=== PATIENT | female | born 1940 | race Two or more races ===

== ENCOUNTER 2021-01-28 22:48 | Inpatient (IN) | payer MEDICARE, BC ==
[~2021-01-28] VITALS: Ht 160 cm; Wt 54.0 kg
[2021-01-28] MEDS ORDERED: IV NS 0.9% 1,000 ML IV ONE (23:00)
--- NOTE | 2021-01-28 23:01 | NUR ---
PT AAOX4. C/O BODY IS BURNING AFTER TAKING ANTIBIOTICS FOR HER H. PYLORI. PT PLACED IN BED 9 ON MONITOR AND PULSE OX. AWAITING ER MD FOR EVAL AND ORDERS.
--- NOTE | 2021-01-28 23:06 | NUR ---
LINE ESTABLISHED RH 20G.
[2021-01-28] MEDS ORDERED: HYDROCODONE/APAP 10/325MG TABLET ONE (23:23)
[2021-01-28] MEDS ORDERED: HYDROCODONE/APAP 5/325MG TABLET ONE (23:25)
[2021-01-28 23:26] LABS: BASOPHILS # (AUTO) 0.1 /CMM (0.0-0.2); BASOPHILS % (AUTO) 1.3 % (0.0-2.0); EOSINOPHILS % (AUTO) 0.8 % (0.0-6.0); HEMATOCRIT 39 % (33-45); LYMPHOCYTES # (AUTO) 1.3 /CMM (0.8-4.8); LYMPHOCYTES % (AUTO) 20.7 % (20.0-44.0); MEAN CORPUSCULAR HGB CONC 33 g/dl (31.0-36.0); MEAN CORPUSCULAR VOLUME 92 fL (82-100); MONOCYTES # (AUTO) 0.5 /CMM (0.1-1.30); MONOCYTES % (AUTO) 7.1 % (2.0-12.0); NEUTROPHILS # (AUTO) 4.5 /CMM (1.8-8.9); NEUTROPHILS % (AUTO) 70.1 % (43.0-81.0); PLATELET COUNT (AUTO) 300 /CMM (150-450); RED BLOOD CELL COUNT(AUTO) 4.24 MIL/uL (4.0-5.2); WHITE BLOOD COUNT (AUTO) 6.4 K/uL (4.3-11.0)
[2021-01-28] MEDS ORDERED: HYDROCODONE/APAP 5/325MG TABLET PO ONE (23:30)
[2021-01-28 23:35] LABS: CALCIUM, SERUM 9.3 mg/dL (8.5-10.1); CREATININE 0.7 mg/dL (0.6-1.3); POTASSIUM 4.4 mmol/L (3.5-5.1)
--- NOTE | 2021-01-29 00:02 | NUR ---
CALLED FOR COVID SWAB
--- NOTE | 2021-01-29 00:21 | NUR ---
PT AWARE OF PLAN OF CARE
--- NOTE | 2021-01-29 00:30 | NUR ---
DR. THAKKAR PAGED PER ER ORDER.
--- NOTE | 2021-01-29 00:46 | NUR ---
GOLDIE BOOTH TALKING TO DR. THAKKAR REGARDING PT ADMISSION.
[2021-01-29] MEDS ORDERED: ONDANSETRON HCL/PF 4 MG/2 ML VIAL IVP PRN (01:00)
[2021-01-29] MEDS ORDERED: Z GUARD REMEDY 2 OZ OINT TP PRN (01:00)
[2021-01-29] MEDS ORDERED: MAGNESIUM HYDROXIDE 30 ML UDC PO PRN (01:00)
[2021-01-29] MEDS ORDERED: ZOLPIDEM TARTRATE 5 MG TABLET PO PRN (01:00)
--- NOTE | 2021-01-29 01:09 | NUR ---
REPORT GIVEN TO ALEX AGUILAR FOR YOVANA
[2021-01-29 02:05] VITALS: BP 145/95
--- NOTE | 2021-01-29 02:13 | NUR ---
PT TRANSFERED PER ACLS PROTOCOL
[2021-01-29 03:12] VITALS: BP 145/95
--- NOTE | 2021-01-29 03:19 | NUR ---
RN NOTES PT ARRIVED TO UNIT VIA [facility] PT WAS ABLE TO WALK TO BED FROM [facility] PT HAS STEADY GAIT. PT IS ALERT AND ORIENTED X 4 NO SIGN OF PAIN OR DISCOMFORT VISIBLE OR REPORTED AT THIS TIME. PT HAS IV ACCESS ON THE RIGHT HAND 20G FLUSHING INTACT NO SIGNS OF REDNESS OR SWELLING AT IV SITE. PT SKIN IS INTACT NO REDNESS OR BRUISING NOTED. PT ABDOMEN IS SOFT AND NONTENDER BOWEL SOUNDS PRESENT IN ALL FOUR QUADRANTS UPON AUSCULTATION LUNG SOUNDS CLEAR BILATERALLY. PT ORIENTED TO UNIT. AND ROOM CALL LIGHT WITHIN REACH. WILL CONTINUE TO MONITOR.
[2021-01-29 04:00] VITALS: BP 135/77
[2021-01-29] MEDS: HYDROCODONE/APAP 5/325MG TABLET PO PRN (04:24)
[2021-01-29 06:35] LABS: BASOPHILS # (AUTO) 0.1 /CMM (0.0-0.2); BASOPHILS % (AUTO) 1.1 % (0.0-2.0); EOSINOPHILS % (AUTO) 1.2 % (0.0-6.0); HEMATOCRIT 38 % (33-45); HEMOGLOBIN 12.6 g/dL (11.5-14.8); LYMPHOCYTES # (AUTO) 1.4 /CMM (0.8-4.8); LYMPHOCYTES % (AUTO) 23.7 % (20.0-44.0); MEAN CORPUSCULAR HGB CONC 33 g/dl (31.0-36.0); MEAN CORPUSCULAR VOLUME 93 fL (82-100); MONOCYTES # (AUTO) 0.5 /CMM (0.1-1.30); MONOCYTES % (AUTO) 9.3 % (2.0-12.0); NEUTROPHILS # (AUTO) 3.8 /CMM (1.8-8.9); NEUTROPHILS % (AUTO) 64.7 % (43.0-81.0); PLATELET COUNT (AUTO) 297 /CMM (150-450); RED BLOOD CELL COUNT(AUTO) 4.08 MIL/uL (4.0-5.2); WHITE BLOOD COUNT (AUTO) 5.8 K/uL (4.3-11.0)
--- NOTE | 2021-01-29 06:49 | NUR ---
RN NOTES PT [facility] PT WAS ABLE TO WALK TO BED FROM [facility] PT HAS STEADY GAIT. PT IS ALERT AND ORIENTED X 4 NO SIGN OF PAIN OR DISCOMFORT VISIBLE OR REPORTED AT THIS TIME. PT HAS IV ACCESS ON THE RIGHT HAND 20G FLUSHING INTACT NO SIGNS OF REDNESS OR SWELLING AT IV SITE. CALL LIGHT WITHIN REACH. WILL ENDORSE CARE TO DAY SHIFT NURSE.
[2021-01-29 07:03] LABS: CALCIUM, SERUM 8.8 mg/dL (8.5-10.1); CREATININE 0.6 mg/dL (0.6-1.3); PHOSPHORUS 4.2 mg/dL (2.5-4.9); POTASSIUM 4.2 mmol/L (3.5-5.1)
[2021-01-29] MEDS ORDERED: LACT1CAP71 PO (07:51)
[2021-01-29] MEDS ORDERED: TRIA0.2585 PO (07:51)
[2021-01-29] MEDS ORDERED: METO25TA4 PO (07:51)
[2021-01-29] MEDS ORDERED: ASPI-1169 PO (07:51)
[2021-01-29] MEDS ORDERED: FAMO20TA8 PO (07:51)
--- NOTE | 2021-01-29 07:52 | NUR ---
MS RN OPENING NOTE PATIENT IS IN ROOM RESTING, PATIENT IS IN NO ACUTE DISTRESS. PATIENT IS ON ROOM AIR TOLERATING WELL. NO SOB NOTED. PATIENT IS ON TELE MONITOR READING SR 90S. SAFETY PRECAUTIONS ARE ON, BED IS LOCKED AND IN THE LOWEST POSITION, SIDE RAILS ARE UP, CALL LIGHT WITHIN REACH. WILL CONTINUE TO MONITOR CLOSELY THROUGHOUT THE SHIFT.
[2021-01-29 07:59] VITALS: BP 141/76
[2021-01-29] MEDS ORDERED: ASPIRIN 81 MG TAB.CHEW PO SCH (09:00)
[2021-01-29] MEDS: METOPROLOL SUCCINATE 25 MG TAB.SR.24H PO SCH (09:15)
[2021-01-29] MEDS: ACIDOPHILUS/BULGARICUS 1 EACH TAB.CHEW PO SCH ×3 (09:15→16:41)
[2021-01-29] MEDS: ASPIRIN 81 MG TAB.CHEW PO SCH (09:16)
[2021-01-29] MEDS: ENOXAPARIN SODIUM 40 MG/0.4 ML DISP.SYRIN SQ SCH (13:18)
[2021-01-29 13:29] LABS: THYROID STIMULATING HORMONE 2.211 uIU/mL (0.358-3.74)
[2021-01-29 16:05] VITALS: BP 124/75
--- NOTE | 2021-01-29 19:33 | NUR ---
MS RN CLOSING NOTE PATIENT IS IN ROOM RESTING, PATIENT IS IN NO ACUTE DISTRESS. PATIENT IS ON ROOM AIR. TOLERATING WELL. NO SOB NOTED. SAFETY PRECAUTIONS ARE ON, BED IS LOCKED AND IN THE LOWEST POSITION, SIDE RAILS ARE UP, CALL LIGHT WITHIN REACH. ENDORSE PATIENT TO CHECK WRITING MACHINE OPERATOR NURSE FOR YOVANA.
--- NOTE | 2021-01-29 19:46 | NUR ---
RN NOTES PATIENT IS IN ROOM RESTING, PATIENT IS IN NO ACUTE DISTRESS. PATIENT IS ON ROOM AIR TOLERATING WELL. NO SOB NOTED. PATIENT IS ON TELE MONITOR READING SR 90S. SAFETY PRECAUTIONS ARE ON, BED IS LOCKED AND IN THE LOWEST POSITION, SIDE RAILS ARE UP, CALL LIGHT WITHIN REACH. WILL CONTINUE TO MONITOR CLOSELY .
[2021-01-29 20:00] VITALS: BP 145/77
[2021-01-29] MEDS: EZETIMIBE 10 MG TABLET PO SCH (21:40)
[2021-01-29] MEDS ORDERED: TRIAZOLAM 0.125 MG TABLET PO SCH (22:00)
[2021-01-30] MEDS: HYDROCODONE/APAP 5/325MG TABLET PO PRN (00:19)
--- NOTE | 2021-01-30 06:40 | NUR ---
RN NOTES PATIENT IS IN ROOM RESTING, PATIENT IS IN NO ACUTE DISTRESS. PATIENT IS ON ROOM AIR TOLERATING WELL. NO SOB NOTED. PATIENT IS ON TELE MONITOR READING SR 90S. SAFETY PRECAUTIONS ARE ON, BED IS LOCKED AND IN THE LOWEST POSITION, SIDE RAILS ARE UP, CALL LIGHT WITHIN REACH. WILL ENDORSE CARE TO DAY SHIFT NURSE. ALL NURSING NEEDS MET. ALL DUE MEDS GIVEN AND TOLERATED WELL.
--- NOTE | 2021-01-30 07:55 | NUR ---
MS RN OPENING NOTE RECEIVED PATIENT LYING IN BED, AWAKE. PATIENT STATES SHE NEEDS TO SEE THE DOCTOR AKILA. PATIENT ON ROOM AIR - TOLERATING WELL. NO CURRENT PAIN OR DISTRESS NOTED. SAFETY PRECAUTIONS IN PLACE, BED LOCKED AND IN THE LOWEST POSITION, SIDE RAILS X2, CALL LIGHT WITHIN REACH. WILL CONTINUE TO MONITOR.
[2021-01-30 08:00] VITALS: BP 128/74
[2021-01-30 08:03] LABS: BASOPHILS # (AUTO) 0.1 /CMM (0.0-0.2); BASOPHILS % (AUTO) 1.5 % (0.0-2.0); EOSINOPHILS % (AUTO) 1.3 % (0.0-6.0); HEMATOCRIT 38 % (33-45); HEMOGLOBIN 12.6 g/dL (11.5-14.8); LYMPHOCYTES # (AUTO) 1.7 /CMM (0.8-4.8); LYMPHOCYTES % (AUTO) 26.6 % (20.0-44.0); MEAN CORPUSCULAR HGB CONC 33 g/dl (31.0-36.0); MEAN CORPUSCULAR VOLUME 93 fL (82-100); MONOCYTES # (AUTO) 0.7 /CMM (0.1-1.30); MONOCYTES % (AUTO) 10.6 % (2.0-12.0); NEUTROPHILS # (AUTO) 3.8 /CMM (1.8-8.9); PLATELET COUNT (AUTO) 315 /CMM (150-450); RED BLOOD CELL COUNT(AUTO) 4.06 MIL/uL (4.0-5.2); WHITE BLOOD COUNT (AUTO) 6.4 K/uL (4.3-11.0)
[2021-01-30 08:05] LABS: CALCIUM, SERUM 8.8 mg/dL (8.5-10.1); CARBON DIOXIDE 25 mmol/L (21-32); CHLORIDE 97 mmol/L (98-107); CREATININE 0.7 mg/dL (0.6-1.3); GLUCOSE 83 mg/dL (74-106); POTASSIUM 3.6 mmol/L (3.5-5.1); SODIUM SERUM 132 mmol/L (136-145); UREA NITROGEN, BLOOD 13 mg/dL (7-18)
[2021-01-30] MEDS: ACIDOPHILUS/BULGARICUS 1 EACH TAB.CHEW PO SCH ×3 (08:26→16:56)
[2021-01-30] MEDS: PANTOPRAZOLE 40 MG TABLET.DR PO SCH (08:27)
[2021-01-30] MEDS: ASPIRIN 81 MG TAB.CHEW PO SCH (08:27)
[2021-01-30] MEDS: METOPROLOL SUCCINATE 25 MG TAB.SR.24H PO SCH (08:27)
[2021-01-30] MEDS: ENOXAPARIN SODIUM 40 MG/0.4 ML DISP.SYRIN SQ SCH (08:28)
[2021-01-30] MEDS ORDERED: CT SWABBABLE VALVE TRANS SET 1 EA INFUS.SET MC ONE (14:29)
[2021-01-30] MEDS ORDERED: IOHEXOL-300 100 ML VIAL IV ONE (14:29)
[2021-01-30] MEDS ORDERED: IV NS 0.9% 250 ML IV ONE (14:29)
[2021-01-30] MEDS ORDERED: TRAMADOL HCL 50 MG TABLET PO PRN (16:30)
--- NOTE | 2021-01-30 17:00 | NUR ---
MS RN NOTE PATIENT'S WATER MAINTENANCE SUPERVISOR IS ERICK. PATIENT WOULD LIKE HER TO BE FILLED IN WITH EVERY UPDATE. PHONE NUMBER: [phone]
--- NOTE | 2021-01-30 18:27 | NUR ---
MS RN CLOSING NOTE PATIENT IS LYING IN BED, RESTING. A/O X4. BREATHING IS EVEN AN UNLABORED. ON ROOM AIR - TOLERATING WELL. PATIENT IS ON ROOM AIR. NO PAIN OR RESPIRATORY DISTRESS NOTED. NO SOB NOTED. PATIENT IS AMBULATORY. PATIENT DUE TO HAVE MRI TONIGHT. SAFETY PRECAUTIONS IN PLACE. BED IS LOCKED AND IN LOWEST POSITION, SIDE RAILS X2. CALL LIGHT WITHIN REACH. WILL ENDORSE TO RN PALLIATIVE CARE NURSE FOR YOVANA.
[2021-01-30 19:00] VITALS: BP 126/74
--- NOTE | 2021-01-30 19:13 | NUR ---
RN NOTE PT ALERT AND ORIENTED X 4 IN BED WITH HEAD OF BED ELEVATED. ON ROOM AIR, NO COMPLAINTS OF PAIN, PT CAME BACK FROM MRI, PLAN OF CARE DISCUSSED, JANAK LIGHT WITHIN REACH, SAFETY MEASURES IN PLACE PER PROTOCOL, WILL MONITOR PT.
[2021-01-30 20:00] VITALS: BP 124/74
[2021-01-30] MEDS: MAG HYDROX/AL HYDROX/SIMETH 30 ML UDC PO PRN (20:21)
[2021-01-30] MEDS: EZETIMIBE 10 MG TABLET PO SCH (21:03)
--- NOTE | 2021-01-30 21:03 | NUR ---
RN NOTE PT REFUSED MEDICATION ZETIA 10MG DESPITE EXPLANATION OF RISKS VS ADVANTAGES. PT STATES THE MEDICATION MAKES HER FEEL "AWFUL."
[2021-01-30] MEDS ORDERED: TRIAZOLAM 0.125 MG TABLET PO SCH (22:00)
[2021-01-30] MEDS: TEMAZEPAM 7.5 MG CAPSULE PO PRN (22:30)
[2021-01-31] MEDS: ACETAMINOPHEN 325 MG TABLET PO PRN ×2 (04:17→11:21)
--- NOTE | 2021-01-31 06:59 | NUR ---
RN NOTE NO ACUTE CHANGES OBSERVED OVERNIGHT. PT ALERT AND ORIENTED X 4 IN BED WITH HEAD OF BED ELEVATED. ON ROOM AIR, DENIES PAIN OR DISCOMFORT, CALL LIGHT WITHIN REACH, SAFETY MEASURES IN PLACE PER PROTOCOL, WILL ENDORSE TO MORNING RN FOR YOVANA.
[2021-01-31 07:00] LABS: BASOPHILS # (AUTO) 0.1 /CMM (0.0-0.2); BASOPHILS % (AUTO) 2.2 % (0.0-2.0); EOSINOPHILS % (AUTO) 2.6 % (0.0-6.0); HEMATOCRIT 36 % (33-45); LYMPHOCYTES # (AUTO) 1.8 /CMM (0.8-4.8); LYMPHOCYTES % (AUTO) 32.5 % (20.0-44.0); MEAN CORPUSCULAR HGB CONC 34 g/dl (31.0-36.0); MEAN CORPUSCULAR VOLUME 93 fL (82-100); MONOCYTES # (AUTO) 0.7 /CMM (0.1-1.30); MONOCYTES % (AUTO) 11.8 % (2.0-12.0); NEUTROPHILS # (AUTO) 2.9 /CMM (1.8-8.9); NEUTROPHILS % (AUTO) 50.9 % (43.0-81.0); PLATELET COUNT (AUTO) 305 /CMM (150-450); RED BLOOD CELL COUNT(AUTO) 3.88 MIL/uL (4.0-5.2); WHITE BLOOD COUNT (AUTO) 5.6 K/uL (4.3-11.0)
--- NOTE | 2021-01-31 07:32 | NUR ---
MS RN OPENING NOTE RECEIVED PATIENT LYING IN BED, AWAKE. A/O X4. PATIENT ON ROOM AIR - TOLERATING WELL. NO CURRENT PAIN OR DISTRESS NOTED. SAFETY PRECAUTIONS IN PLACE, BED LOCKED AND IN THE LOWEST POSITION, SIDE RAILS X2, CALL LIGHT WITHIN REACH. WILL CONTINUE TO MONITOR.
[2021-01-31 08:00] VITALS: BP 126/71
[2021-01-31] MEDS: ASPIRIN 81 MG TAB.CHEW PO SCH (08:18)
[2021-01-31] MEDS: PANTOPRAZOLE 40 MG TABLET.DR PO SCH (08:18)
[2021-01-31] MEDS: METOPROLOL SUCCINATE 25 MG TAB.SR.24H PO SCH (08:18)
[2021-01-31] MEDS: ACIDOPHILUS/BULGARICUS 1 EACH TAB.CHEW PO SCH ×3 (08:18→17:06)
[2021-01-31] MEDS: ENOXAPARIN SODIUM 40 MG/0.4 ML DISP.SYRIN SQ SCH (08:19)
[2021-01-31 10:15] LABS: CALCIUM, SERUM 8.9 mg/dL (8.5-10.1); CREATININE 0.8 mg/dL (0.6-1.3); MAGNESIUM 2.3 mg/dL (1.8-2.4); POTASSIUM 3.8 mmol/L (3.5-5.1)
[2021-01-31] MEDS ORDERED: TRAMADOL HCL 50 MG TABLET PO PRN (15:30)
[2021-01-31 16:00] VITALS: BP 131/74
--- NOTE | 2021-01-31 18:26 | NUR ---
MS RN CLOSING NOTE PATIENT IS LYING IN BED, RESTING. A/O X4. BREATHING IS EVEN AN UNLABORED. ON ROOM AIR - TOLERATING WELL. NO PAIN OR RESPIRATORY DISTRESS NOTED. NO SOB NOTED. PATIENT IS AMBULATORY. PENDING NEURO SURGEON CONSULT FROM DR. HESTER. SAFETY PRECAUTIONS IN PLACE. BED IS LOCKED AND IN LOWEST POSITION, SIDE RAILS X2. CALL LIGHT WITHIN REACH. WILL ENDORSE TO CHOIR LEADER NURSE FOR YOVANA.
--- NOTE | 2021-01-31 19:30 | NUR ---
RN opening notes Received Pt from morning nurse. Pt is sitting in bed comfortably in bed. Pt is alert and orientedX4. Respiration is normal in room air. No SOB. No S/S of distress noted. IV site R hand is clean, intact, flushes well and SL. Pt is able to ambulate with a steady gait. Safety precautions is maintained. Bed at low position, brakes locked, side rails upX2, hob elevated, and call light is within reach. Will continue to monitor.
[2021-01-31 20:00] VITALS: BP 152/76
[2021-01-31] MEDS: EZETIMIBE 10 MG TABLET PO SCH (21:39)
--- NOTE | 2021-01-31 21:39 | NUR ---
RN notes Pt refused Zetia 10 mg. Explained risks and benefits. Offered multiple times. Pt keep refusing. Will continue to monitor.
--- NOTE | 2021-01-31 21:42 | NUR ---
RN notes Transferred YOVANA to JEFF Carbajal.
--- NOTE | 2021-01-31 23:45 | NUR ---
JEFF NOTES TRANSFER OF YOVANA TO DERIK AGUILAR Addendum: 01/31/21 at 2348 by PILAR MORALES RN TRANSFER OF YOVANA TO CHRISTINE AGUILAR
--- NOTE | 2021-01-31 23:46 | NUR ---
RN notes Received Pt back from JEFF Carbajal.
[2021-02-01] MEDS: TEMAZEPAM 7.5 MG CAPSULE PO PRN (00:15)
--- NOTE | 2021-02-01 00:15 | NUR ---
RN notes Pt is having insomnia and requesting sleeping pill. Administered restoril 7.5 mg/po/prn as ordered for sleeping. Safety precautions is maintained. Will continue to monitor.
--- NOTE | 2021-02-01 06:40 | NUR ---
RN closing notes Pt is resting in bed comfortably. Pt is alert and orientedX4. Respiration is normal in room air. No SOB. No S/S of distress noted. VS is stable. Afebrile. IV site R hand is clean, intact, flushes well and SL. Kept Pt clean, dry and comfortable. Safety precautions is maintained. Bed at low position, brakes locked, side rails upX2, hob elevated, and call light is within reach. Will endorse to morning nurse for YOVANA.
[2021-02-01 06:49] LABS: BASOPHILS # (AUTO) 0.2 /CMM (0.0-0.2); BASOPHILS % (AUTO) 3.1 % (0.0-2.0); EOSINOPHILS % (AUTO) 3.2 % (0.0-6.0); HEMATOCRIT 35 % (33-45); HEMOGLOBIN 11.6 g/dL (11.5-14.8); LYMPHOCYTES # (AUTO) 1.7 /CMM (0.8-4.8); LYMPHOCYTES % (AUTO) 35.5 % (20.0-44.0); MEAN CORPUSCULAR HGB CONC 34 g/dl (31.0-36.0); MEAN CORPUSCULAR VOLUME 93 fL (82-100); MONOCYTES # (AUTO) 0.5 /CMM (0.1-1.30); MONOCYTES % (AUTO) 10.5 % (2.0-12.0); NEUTROPHILS # (AUTO) 2.3 /CMM (1.8-8.9); NEUTROPHILS % (AUTO) 47.7 % (43.0-81.0); PLATELET COUNT (AUTO) 307 /CMM (150-450); RED BLOOD CELL COUNT(AUTO) 3.72 MIL/uL (4.0-5.2); WHITE BLOOD COUNT (AUTO) 4.9 K/uL (4.3-11.0)
[2021-02-01 07:41] LABS: CALCIUM, SERUM 8.9 mg/dL (8.5-10.1); CREATININE 0.6 mg/dL (0.6-1.3); MAGNESIUM 2.5 mg/dL (1.8-2.4); POTASSIUM 3.8 mmol/L (3.5-5.1)
--- NOTE | 2021-02-01 07:46 | NUR ---
MS RN OPENING NOTES RECEIVED PATIENT IN BED, AWAKE, A/O X4. PATIENT ON ROOM AIR; BREATHING EVEN AND UNLABORED; NO SOB NOTED THIS TIME. NO COMPLAINS OF PAIN. IV ACCESS AT R HAND G #20 PRESENT AND INTACT, SL. SAFETY PRECAUTIONS IN PLACE; BED IN LOW POSITION AND LOCKED, RAILS UP X2, CALL LIGHT WITHIN REACH. WILL CONTINUE TO MONITOR PATIENT.
[2021-02-01 08:00] VITALS: BP 132/76
[2021-02-01 08:26] VITALS: BP 137/76
[2021-02-01] MEDS: PANTOPRAZOLE 40 MG TABLET.DR PO SCH (08:26)
[2021-02-01] MEDS: ACIDOPHILUS/BULGARICUS 1 EACH TAB.CHEW PO SCH ×2 (08:26→12:02)
[2021-02-01] MEDS: METOPROLOL SUCCINATE 25 MG TAB.SR.24H PO SCH (08:26)
[2021-02-01] MEDS: ASPIRIN 81 MG TAB.CHEW PO SCH (08:26)
[2021-02-01] MEDS: ENOXAPARIN SODIUM 40 MG/0.4 ML DISP.SYRIN SQ SCH (08:29)
[2021-02-01] MEDS ORDERED: TRAM50TA2 PO (10:54)
[2021-02-01] MEDS: MAG HYDROX/AL HYDROX/SIMETH 30 ML UDC PO PRN (11:05)
--- NOTE | 2021-02-01 11:06 | NUR ---
MS RN NOTES PATIENT COMPLAINING OF INDIGESTION; REQUESTING MEDICATION. PRN MAALOX ADMINISTERED.
--- NOTE | 2021-02-01 14:52 | NUR ---
MS RAW STOCK MACHINE LOADER NOTES PATIENT DISCHARGED HOME IN MEDICALLY STABLE CONDITION. PATIENT A/O X4, ABLE TO MAKE NEEDS KNOWN, CAREGIVER AT BEDSIDE. ALL DISCHARGE DOCUMENTATION READY AND SIGNED BY PATIENT. TEACHING PROVIDED REGARDING MEDICATIONS ALONG WITH MD DISCHARGE INSTRUCTIONS. PATIENT VERBALIZED UNDERSTANDING. BELONGINGS ACCOUNTED FOR AND FORM SIGNED. SKIN INTACT. BEFORE LEAVING THE FLOOR IV WAS REMOVED. PATIENT LEFT THE UNIT BY WHEELCHAIR ACCOMPANIED BY MANAGED CARE LIAISON AND CAREGIVER AT 1445. LEFT THE HOSPITAL VIA PRIVATE CAR.
== END 2021-02-01 14:45 | disposition home or self-care (01) | DRG 552 ==
LOC: ER 22:50 → TELE 01-29 01:03 → MED 01-29 10:38
PROVIDERS: ADMIT Nurse Practitioner Acute Care; ATTEND Nurse Practitioner Family
DX: M51.15 Intervertebral disc disorders with radiculopathy, thoracolumbar region (principal); E87.1 Hypo-osmolality and hyponatremia; J98.11 Atelectasis; I25.10 Atherosclerotic heart disease of native coronary artery without angina pectoris; E78.5 Hyperlipidemia, unspecified; Z95.1 Presence of aortocoronary bypass graft; I10 Essential (primary) hypertension; K29.70 Gastritis, unspecified, without bleeding; R63.1 Polydipsia; Z96.652 Presence of left artificial knee joint; Z96.641 Presence of right artificial hip joint; Z20.822 Contact with and (suspected) exposure to COVID-19; R20.8 Other disturbances of skin sensation; Z86.19 Personal history of other infectious and parasitic diseases; M48.05 Spinal stenosis, thoracolumbar region
CPT/HCPCS: 36415; 71045-TC; 72148-TC; 80048-TC; 80061-TC; 82533; 82550-TC; 83735-TC; 84100-TC; 84300-TC; 84443-TC; 84550-TC; 85025-TC; 87081-TC; 93307-TC; C9803; G0378; J1650; J2405; J7030; J7050; Q9967